=== PATIENT | male | born 1995 | race Caucasian/White ===

== ENCOUNTER 2023-11-05 15:58 | Outpatient (CLI) | payer BC, SELFPAY | END 2023-11-05 15:59 | disposition home or self-care (01) | PROVIDERS: PCP Family Medicine; Visit Provider Family Medicine | DX: E55.9 Vitamin D deficiency, unspecified (principal); R25.1 Tremor, unspecified; Z13.220 Encounter for screening for lipoid disorders | CPT/HCPCS: 80048; 80061; 82306 ==